=== PATIENT | female | born 1935 | race Caucasian/White ===

== ENCOUNTER 2017-07-29 12:15 | Emergency (ER) | END 2017-07-29 15:20 | disposition home or self-care (01) ==

== ENCOUNTER 2017-08-09 09:33 | Emergency (ER) | END 2017-08-09 23:24 | disposition home or self-care (01) ==

== ENCOUNTER 2017-08-18 17:36 | Inpatient (IN) | END 2017-09-20 19:15 | DRG 82 ==

== ENCOUNTER 2017-12-02 13:36 | Inpatient (IN) | END 2017-12-07 18:40 | disposition home or self-care (01) | DRG 195 ==